=== PATIENT | female | born 1940 | race African-American/Black ===

== ENCOUNTER 2018-06-18 10:51 | Inpatient (IN) | payer MEDICARE, OTHER ==
[~2018-06-18] VITALS: Ht 162.6 cm; Wt 86.2 kg
[2018-06-18 10:50] VITALS: BP 96/40
[2018-06-18] MEDS ORDERED: DOPamine 1600MCG/ML D5W 250 ML IV ONE (11:15)
[2018-06-18] MEDS ORDERED: fentaNYL Drip 2500mCg/250mlNS 250 ML IV ONE (12:10)
[2018-06-18] MEDS ORDERED: SODIUM BICARBONATE 8.4% INJ 50ML SYRINGE ONE (12:33)
[2018-06-18] MEDS ORDERED: fentaNYL Drip 2500mCg/250mlNS 250 ML IV SCH (12:46)
[2018-06-18] MEDS ORDERED: DOPamine 1600MCG/ML D5W 250 ML IV SCH (12:46)
[2018-06-18] MEDS ORDERED: NOREPINEPHRINE 8 MG/250ML KIT 250 ML IV SCH (12:50)
[2018-06-18] MEDS ORDERED: SODIUM BICARBONATE 8.4 % INJ 50ML VIAL IV ONE ×2 (13:00→14:54)
[2018-06-18] MEDS ORDERED: VANCOMYCIN 1GM/250ML 250 ML IV ONE (13:15)
[2018-06-18] MEDS ORDERED: SODIUM CHLORIDE 0.9% 2,600 ML IV ONE (13:15)
[2018-06-18] MEDS ORDERED: LEVOFLOXACIN 750MG 150 ML IV ONE (13:15)
[2018-06-18] MEDS ORDERED: AZITHROMYCIN 500MG/ 250ML 250 ML IV ONE (13:15)
[2018-06-18] MEDS ORDERED: PIPERACILLIN-TAZOB 2.25GM 50 ML IV ONE (13:15)
[2018-06-18] MEDS ORDERED: CLINDAMYCIN 900MG IV 50 ML IV ONE (13:15)
[2018-06-18] MEDS ORDERED: VANCOMYCIN PER PHARMACY 0 MG IV SCH (13:15)
[2018-06-18 13:35] LABS: Mean Corpuscular Hemoglobin 31.2 pg (28.0-32.0)
[2018-06-18 13:37] LABS: Hematocrit 18.4 % (36.0-46.0); Mean Corpuscular Hgb Conc. 29.3 g/dL (32.0-36.0); Mean Corpuscular Volume 106.6 fL (80.0-100.0); Platelet Count (auto) 266 10^3/uL (140-450); Red Blood Cells 1.72 10^6/uL (4.0-5.20); White Blood Cell 15.3 10^3/uL (4.4-10.8)
[2018-06-18 13:41] LABS: Hemoglobin 5.4 g/dL (12.2-16.2)
[2018-06-18 13:43] LABS: Basophils % (manual) 0 (0.0-2.0); Blast Cells 0; Eosinophils % (manual) 0 (0-7); Metamyelocytes % 0; Myelocytes % 0; Promyelocytes % 0; Reactive Lymphocytes 0
[2018-06-18 13:49] LABS: INR 1.36 (0.9-1.15); Partial Thromboplastin Time 26.6 sec (23.78-33.04); Prothrombin Time 14.3 sec (9.27-12.13)
[2018-06-18 13:50] VITALS: BP 88/43
[2018-06-18 13:52] LABS: Albumin 2.3 g/dL (3.4-5.0); Calcium 8.5 mg/dL (8.5-10.1); Magnesium 2.8 mg/dL (1.6-2.6); Potassium 5.5 mmol/L (3.5-5.1)
[2018-06-18 14:00] VITALS: BP 88/43
[2018-06-18 14:00] LABS: BUN/Creatinine Ratio 16.3; Bilirubin, Total 0.9 mg/dL (0.2-1.0); Total Protein 5.8 g/dL (6.4-8.2)
[2018-06-18] MEDS ORDERED: CLINDAMYCIN 600MG IV 50 ML IV SCH (14:00)
[2018-06-18] MEDS ORDERED: PANTOPRAZOLE 40 MG/10 ML VIAL IV ONE (14:00)
[2018-06-18] MEDS ORDERED: NITROGLYCERIN 0.4 MG SL TAB SL PRN (14:30)
[2018-06-18] MEDS ORDERED: DEXTROSE (50%) 50ML SYRG IV PRN (14:30)
[2018-06-18] MEDS ORDERED: LORazepam 2MG/ML-1ML VIAL IV PRN (14:30)
[2018-06-18] MEDS ORDERED: MORPHINE SULF INJ 2 MG/ML SYRINGE 1ML IV PRN (14:30)
[2018-06-18] MEDS ORDERED: SODIUM POLYSTYRENE SULF 15GM/60ml SUSP or POWDER NG ONE (14:30)
[2018-06-18] MEDS ORDERED: ALBUTEROL SULF 2.5 MG/0.5ML(0.5%) NEB SOLN NEB PRN (14:30)
[2018-06-18 14:54] LABS: Amylase 51 U/L (25-115); Lipase 187 U/L (73-393)
[2018-06-18] MEDS ORDERED: EPINEPHrine HCL 1 MG/10 ML SYRG ONE (14:54)
[2018-06-18 14:55] LABS: Band Neutrophils % (manual) 11; Lymphocytes % (manual) 6 (10.0-50.0); Monocytes % (manual) 2 (0-12)
[2018-06-18 15:20] VITALS: BP 73/39
[2018-06-18 15:58] VITALS: BP 102/63
[2018-06-18] MEDS ORDERED: SODIUM BICARBONATE 50ML VIAL 150 ML in SOD CHL 0.45% 1,000 ML IV SCH (16:00)
[2018-06-18] MEDS ORDERED: MAGNESIUM SULF 50% 40 MEQ/10 ML VL IV ONE (16:01)
[2018-06-18] MEDS ORDERED: CALCIUM CHLOR(10%) 100MG/ML 10ML SYRINGE IV ONE (16:01)
[2018-06-18] MEDS ORDERED: EPINEPHrine HCL 1 MG/10 ML SYRG IV ONE (16:01)
[2018-06-18] MEDS ORDERED: SODIUM BICARBONATE 8.4% INJ 50ML SYRINGE IV ONE (16:01)
[2018-06-18 16:15] LABS: Hematocrit 20.4 % (36.0-46.0)
[2018-06-18 16:19] LABS: BUN/Creatinine Ratio 16.8; Calcium 9.3 mg/dL (8.5-10.1); Potassium 4.7 mmol/L (3.5-5.1)
[2018-06-18 16:53] LABS: Hemoglobin 5.8 g/dL (12.2-16.2)
[2018-06-18] MEDS ORDERED: IPRATROPIUM BROM 0.5 MG/2.5ML INH SOL NEB SCH (18:00)
[2018-06-18] MEDS ORDERED: InsuLIN REG 1unit/0.01ml Soln (100units/ml) SC SCH (18:00)
[2018-06-18] MEDS ORDERED: ACCU-CHEK COMFORT CURVE STRIP VI SCH (18:00)
[2018-06-18] MEDS ORDERED: ALBUTEROL SULF 2.5 MG/0.5ML(0.5%) NEB SOLN NEB SCH (18:00)
[2018-06-18] MEDS ORDERED: PIPERACILLIN-TAZOB 2.25GM 50 ML IV SCH (22:00)
[2018-06-18] MEDS ORDERED: PANTOPRAZOLE 40 MG/10 ML VIAL IV SCH (22:00)
[2018-06-19] MEDS ORDERED: LEVOFLOXACIN 500MG 100 ML IV SCH (10:00)
[2018-06-19] MEDS ORDERED: AZITHROMYCIN 500MG/ 250ML 250 ML IV SCH (10:00)
== END 2018-06-18 16:02 | disposition expired | DRG 871 ==
LOC: ER 10:51 → TELE 14:16
PROVIDERS: ADMIT Internal Medicine; ATTEND Internal Medicine
PROC: 5A1935Z Respiratory Ventilation, Less than 24 Consecutive Hours (ICD-10-PCS; principal; 2018-06-18)
PROC: 0BH17EZ Insertion of Endotracheal Airway into Trachea, Via Natural or Artificial Opening (ICD-10-PCS; 2018-06-18)
PROC: 5A12012 Performance of Cardiac Output, Single, Manual (ICD-10-PCS; 2018-06-18)
DX: A41.9 Sepsis, unspecified organism (principal); I21.4 Non-ST elevation (NSTEMI) myocardial infarction; J18.9 Pneumonia, unspecified organism; J96.00 Acute respiratory failure, unspecified whether with hypoxia or hypercapnia; J44.0 Chronic obstructive pulmonary disease with (acute) lower respiratory infection; I46.9 Cardiac arrest, cause unspecified; E11.9 Type 2 diabetes mellitus without complications; E78.5 Hyperlipidemia, unspecified; E03.9 Hypothyroidism, unspecified; I11.0 Hypertensive heart disease with heart failure; I50.9 Heart failure, unspecified; D64.9 Anemia, unspecified; N19 Unspecified kidney failure; E87.5 Hyperkalemia; I05.8 Other rheumatic mitral valve diseases; Z95.5 Presence of coronary angioplasty implant and graft; Z88.8 Allergy status to other drugs, medicaments and biological substances; Z98.51 Tubal ligation status
CPT/HCPCS: 31500; 36415; 36556; 36600; 70450; 71045; 80048; 80053; 82150; 82550; 82805; 83690; 83735; 84443; 84484; 85007; 85014; 85018; 85027; 85045; 85610; 85652; 85730; 86850; 86900; 86901; 86920; 87040; 87070; 87077; 87186; 87205; 93005; 94002; 96365; 96367; G0378